=== PATIENT | female | born 2000 | race Caucasian/White ===

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

== ENCOUNTER 2021-11-02 13:54 | Outpatient (CLI) | payer MEDICAID, SELFPAY ==
[2021-11-02 09:07] LABS: Prolactin 19.7 ng/mL; Thyroid Stim Hormone (TSH) 2.06 uIU/mL (0.358-3.74)
--- NOTE | 2021-11-02 13:56 | US_ITS ---
STUDY: ULTRASOUND BREAST - RIGHT REASON FOR EXAM: Female, 21 years old. Pain in the right breast. TECHNIQUE: Axial and longitudinal images of the RIGHT breast were performed with a high resolution ultrasound transducer. # OF IMAGES: 88 COMPARISON: None. FINDINGS: RIGHT Breast: The entire right breast was examined by ultrasound. There is dense fibroglandular tissue. No sonographic abnormality is seen. Incidental note is made of a 6 mm x 5 mm x 3 mm benign-appearing lymph node at the 10 o''clock position of the breast at 3 cm from the nipple. IMPRESSION: Incidental note is made of a 6 mm x 5 mm x 3 mm benign appearing lymph node at the 10 o''clock position of the breast at 3 sinus. ASSESSMENT CATEGORY: BIRADS Category 2: Benign. A letter regarding these results will be sent to the patient by the facility within 30 days. Electronically Signed: Carl Acevedo MD at 14:52 EST , Service support , STUDY: ULTRASOUND BREAST - LEFT REASON FOR EXAM: Female, 21 years old. Pain in the left breast. TECHNIQUE: Axial and longitudinal images of the LEFT breast were performed with a high resolution ultrasound transducer. # OF IMAGES: 88 COMPARISON: None. FINDINGS: LEFT Breast: The entire left breast was examined by ultrasound. There is dense fibroglandular tissue. No sonographic abnormality is seen. US/Breast Complete Bilateral IMPRESSION: No sonographic abnormality is seen. ASSESSMENT CATEGORY: BIRADS Category 1: Negative. A letter regarding these results will be sent to the patient by the facility within 30 days. Electronically Signed: Carl Acevedo MD at 14:53 EST , Service support ,
[2021-11-05 13:07] LABS: Testosterone, % Free 1.91 % (0.50-2.80); Testosterone, Free 0.69 ng/dL (0.10-0.85); Testosterone, Total 36 ng/dL (13-71)
[2021-11-10 19:14] LABS: 17-Hydroxyprogesterone 262 ng/dL (.)
== END 2021-11-02 23:59 | disposition short-term general hospital (02) ==
LOC: OPUS 13:55
PROVIDERS: PCP Pediatrics; Referring Provider Obstetrics & Gynecology; Visit Provider Obstetrics & Gynecology
DX: N64.4 Mastodynia (principal); N93.9 Abnormal uterine and vaginal bleeding, unspecified
CPT/HCPCS: 36415; 76641; 82627; 83498; 84146; 84402; 84403; 84443; 82626